=== PATIENT | female | born 2000 | race Caucasian/White ===

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

== ENCOUNTER 2022-11-27 18:24 | Emergency (ER) | payer OTHER ==
[~2022-11-27] VITALS: Ht 162.6 cm; Wt 88.6 kg
[2022-11-27 18:38] VITALS: BP 129/73; PULSE 72; RESP 16; TEMP 98.1
== END 2022-11-27 21:35 | disposition home or self-care (01) ==
LOC: EMS 18:42
DX: M25.531 Pain in right wrist (principal)
CPT/HCPCS: 99283

== ENCOUNTER 2023-08-07 15:13 | Emergency (ER) | payer OTHER ==
[~2023-08-07] VITALS: Ht 162.6 cm; Wt 81.8 kg
[2023-08-07 15:16] VITALS: TEMP 98.3
[2023-08-07 17:00] VITALS: BP 129/78; PULSE 74; RESP 18
[2023-08-07] MEDS ORDERED: CEPH-558 PO (17:38)
== END 2023-08-07 17:46 | disposition home or self-care (01) ==
LOC: EMS 15:47
DX: L02.416 Cutaneous abscess of left lower limb (principal); L02.415 Cutaneous abscess of right lower limb
CPT/HCPCS: 99283; Z7502

== ENCOUNTER 2024-03-11 18:28 | Emergency (ER) | payer OTHER ==
[~2024-03-11] VITALS: Ht 162.6 cm; Wt 81.8 kg
[~2024-03-11 18:28] MED LIST changes: -AMOX1255 PO; +CEPH-558 PO; -IBUP-2070 PO
[2024-03-11 20:27] VITALS: BP 123/65; PULSE 71; RESP 16; TEMP 97.3; O2SAT 100
== END 2024-03-11 20:40 | disposition home or self-care (01) ==
LOC: EMS 18:28
DX: Z11.1 Encounter for screening for respiratory tuberculosis (principal)
CPT/HCPCS: 71045; 99283

== ENCOUNTER 2024-04-22 13:49 | Emergency (ER) | payer OTHER ==
[~2024-04-22] VITALS: Ht 162.6 cm; Wt 90.9 kg
[2024-04-22 13:55] VITALS: TEMP 98.6
[2024-04-22] MEDS: ONDANSETRON 4 MG TABLET PO ONE (15:08)
[2024-04-22] MEDS: FAMOTIDINE 20 MG TABLET PO ONE (15:08)
[2024-04-22] MEDS: ACETAMINOPHEN 325 MG TABLET PO ONE (15:08)
[2024-04-22] MEDS: KETOROLAC TROMETHAMINE 30 MG/ML VIAL IM ONE (15:09)
[2024-04-22 16:00] VITALS: BP 123/73; PULSE 80; RESP 18; O2SAT 98
[2024-04-22 16:05] LABS: COVID AG,FIA SOURCE NASAL SWAB
[2024-04-22 16:30] LABS: INFLUENZA TYPE A NEGATIVE FOR TYPE A (NEGATIVE); INFLUENZA TYPE B NEGATIVE FOR TYPE B (NEGATIVE); SARS-COV2 (COVID) ANTIGEN,FIA Negative (Negative)
[2024-04-22 16:42] LABS: APPEARANCE,URINE CLEAR (CLEAR); BILIRUBIN,URINE NEGATIVE (NEGATIVE); COLOR,URINE YELLOW (YELLOW); GLUCOSE, URINE (UA) NEGATIVE (NEGATIVE); KETONES,URINE 40-60 mg/dL (NEGATIVE); LEUKOCYTE ESTERASE ,URINE NEGATIVE (NEGATIVE); NITRATE,URINE NEGATIVE (NEGATIVE); OCCULT BLOOD,URINE MODERATE (NEGATIVE); PH,URINE 5.5 (5.0-8.0); PROTEIN,URINE TRACE mg/dL (NEGATIVE); SPECIFIC GRAVITIY, URINE 1.031 (1.003-1.030); UROBILINOGEN,URINE <=1.0 mg/dL (<=1.0)
[2024-04-22] MEDS: LOPERAMIDE HCL 2 MG CAPSULE PO ONE (16:42)
[2024-04-22] MEDS: LIDOCAINE 5% TRANSDERMAL PATCH TD ONE (16:42)
[2024-04-22 17:01] LABS: BACTERIA,URINE Few /HPF (None Seen)
[2024-04-22] MEDS ORDERED: ONDA-104 PO (17:11)
[2024-04-22] MEDS: SIMETHICONE 80 MG CHEWABLE TABLET CHEW ONE (17:26)
== END 2024-04-22 17:27 | disposition home or self-care (01) ==
LOC: EMS 13:49
DX: K52.9 Noninfective gastroenteritis and colitis, unspecified (principal); B34.9 Viral infection, unspecified; Z20.822 Contact with and (suspected) exposure to COVID-19
CPT/HCPCS: 99284; 87426; 81001; 87804; 96372; J1885; Q0162; 99283

== ENCOUNTER 2025-02-08 02:22 | Emergency (ER) | payer MEDICAID, OTHER ==
[~2025-02-08] VITALS: Ht 165.1 cm; Wt 104.5 kg
[~2025-02-08 02:22] MED LIST changes: +ONDA-104 PO
[2025-02-08 02:30] VITALS: BP 124/81; PULSE 85; RESP 14; TEMP 98.2; O2SAT 100
[2025-02-08] MEDS ORDERED: HYDR25TA83 PO (07:21)
== END 2025-02-08 03:15 | disposition left against medical advice (07) ==
LOC: EMS 02:30
DX: R20.0 Anesthesia of skin (principal); Z53.21 Procedure and treatment not carried out due to patient leaving prior to being seen by health care provider
CPT/HCPCS: 99281; Z7502

== ENCOUNTER 2025-02-08 03:41 | Emergency (ER) | payer MEDICAID, OTHER ==
[~2025-02-08] VITALS: Ht 165.1 cm; Wt 113.6 kg
[2025-02-08 03:59] VITALS: TEMP 98.3
[2025-02-08 04:36] LABS: PLATELET COUNT (AUTO) 328 K/uL (150-450); RED BLOOD CELL COUNT(AUTO) 4.53 MIL/uL (4.00-5.20); RED CELL DISTRIBUTION WIDTH 13.1 % (11.5-14.5); WHITE BLOOD COUNT (AUTO) 10.8 K/uL (4.5-11.0)
[2025-02-08 04:45] LABS: CALCIUM, TOTAL 9.1 mg/dL (8.8-10.5); CREATININE 0.43 mg/dL (0.60-1.30); GLOMERULAR FILTR. RATE CALC > 60 mL/min (>60); GLUCOSE,RANDOM 120 mg/dL (70-110); SODIUM SERUM 138 mmol/L (136-145); UREA NITROGEN, BLOOD 8 mg/dL (7-18)
[2025-02-08 04:57] LABS: TROPONIN I-HIGH SENSITIVITY Less Than 4 ng/L (<51)
[2025-02-08 05:52] LABS: APPEARANCE,URINE CLEAR (CLEAR); GLUCOSE, URINE (UA) NEGATIVE (NEGATIVE); LEUKOCYTE ESTERASE ,URINE NEGATIVE (NEGATIVE); NITRATE,URINE NEGATIVE (NEGATIVE); OCCULT BLOOD,URINE NEGATIVE (NEGATIVE); SPECIFIC GRAVITIY, URINE 1.013 (1.003-1.030)
[2025-02-08] MEDS ORDERED: SULFACETAMIDE SODIUM 10% 15 ML OPHTHALMIC SOLUTION OS ONE (06:45)
[2025-02-08 07:15] VITALS: BP 134/85; PULSE 82; RESP 16; O2SAT 98
[2025-02-08] MEDS ORDERED: HYDR25TA83 PO (07:21)
== END 2025-02-08 07:31 | disposition home or self-care (01) ==
LOC: EMS 03:44
DX: R07.89 Other chest pain (principal); F41.9 Anxiety disorder, unspecified; Z98.890 Other specified postprocedural states; Z79.899 Other long term (current) drug therapy
CPT/HCPCS: 80048; 81003; 84484; 85025; 93005; 99284